=== PATIENT | male | born 1995 | race Hispanic/Latino ===

== ENCOUNTER 2021-03-09 22:00 | Emergency (ER) | payer SELFPAY ==
[~2021-03-09] VITALS: Ht 177.8 cm; Wt 93.0 kg
[2021-03-09 22:26] VITALS: BP 136/70
[2021-03-10 00:42] VITALS: BP 115/68
[2021-03-10] MEDS ORDERED: IBUP-2088 PO (01:08)
== END 2021-03-10 01:40 | disposition home or self-care (01) ==
LOC: EDH 22:00
DX: S86.911A Strain of unspecified muscle(s) and tendon(s) at lower leg level, right leg, initial encounter (principal); X58.XXXA Exposure to other specified factors, initial encounter; Y93.67 Activity, basketball; Y92.89 Other specified places as the place of occurrence of the external cause; Y99.8 Other external cause status
CPT/HCPCS: 73562